=== PATIENT | male | born 1990 | race Caucasian/White ===

== ENCOUNTER 2022-04-06 19:14 | Inpatient (IN) | payer OTHER ==
[~2022-04-06] VITALS: Ht 172.7 cm; Wt 96.7 kg
[2022-04-06] MEDS ORDERED: ONDANSETRON ODT 4 MG TAB PO ONE (22:00)
[2022-04-06] MEDS ORDERED: OXYCODONE W/ ACETAMINOPHEN 5/325MG TABLET PO ONE (22:30)
[2022-04-06] MEDS ORDERED: HYDROmorphone HCL 2 MG/ML VL/or syr IV ONE (22:30)
[2022-04-06 23:04] LABS: Basophils # (auto) 0.1 10 ^3/uL (0-0.2); Eosinophils # (auto) 0 10 ^3/uL (0-0.8); Eosinophils % (auto) 0.1 % (0.0-7.0); Monocytes # (auto) 0.9 10 ^3/uL (0-1.3); Nucleated Red Blood Cells % 0.2 %
[2022-04-06 23:06] LABS: Basophils % (auto) 0.6 % (0.0-2.0); Hematocrit 55.2 % (41.0-53.0); Hemoglobin 18.4 g/dL (13.5-17.5); Lymphocytes # (auto) 1.5 10 ^3/uL (0.4-5.4); Lymphocytes % (auto) 10.8 % (10.0-50.0); Mean Corpuscular Hemoglobin 27.7 pg (28.0-32.0); Mean Corpuscular Hgb Conc. 33.3 g/dL (32.0-36.0); Mean Corpuscular Volume 83.2 fL (80.0-100.0); Neutrophils # (auto) 11.8 10 ^3/uL (1.6-8.6); Neutrophils % (auto) 82.5 % (37.0-80.0); Red Blood Cells 6.64 10^6/uL (4.5-5.90); Red Cell Distribution Width 13.8 % (11.8-14.3); White Blood Cell 14.3 10^3/uL (4.4-10.8)
[2022-04-06 23:26] LABS: Albumin 1.1 g/dL (3.4-5.0); Calcium 7.3 mg/dL (8.5-10.1); Potassium 5.5 mmol/L (3.5-5.1)
[2022-04-06 23:29] LABS: BUN/Creatinine Ratio 34.2; Bilirubin, Total 0.2 mg/dL (0.2-1.0); Total Protein 4.1 g/dL (6.4-8.2)
[2022-04-07] MEDS ORDERED: traMADol HCL 50 MG TAB PO PRN (00:15)
[2022-04-07] MEDS ORDERED: ACETAMINOPHEN 325 MG TAB PO PRN (00:15)
[2022-04-07] MEDS ORDERED: ONDANSETRON HCL 4 MG/2 ML VIAL IV ONE (01:15)
[2022-04-07] MEDS: traMADol HCL 50 MG TAB PO PRN ×2 (01:20→09:30)
[2022-04-07] MEDS ORDERED: HYDROmorphone HCL 2 MG/ML VL/or syr IV ONE (02:15)
[2022-04-07] MEDS ORDERED: FUROSEMIDE 20 MG/2 ML VIAL IV SCH (06:00)
[2022-04-07] MEDS ORDERED: SODIUM BICARBONATE 8.4 % INJ 50ML VIAL IV ONE (08:00)
[2022-04-07] MEDS ORDERED: DEXTROSE (50%) 50ML SYRG IV ONE (08:00)
[2022-04-07] MEDS ORDERED: ALBUMIN 25% 100 ML IV ONE (08:00)
[2022-04-07] MEDS ORDERED: InsuLIN REG 1unit/0.01ml Soln (100units/ml) IV ONE (08:00)
[2022-04-07 08:29] LABS: Basophils # (auto) 0 10 ^3/uL (0-0.2); Basophils % (auto) 0.5 % (0.0-2.0); Eosinophils # (auto) 0.2 10 ^3/uL (0-0.8); Eosinophils % (auto) 1.5 % (0.0-7.0); Hematocrit 54.2 % (41.0-53.0); Hemoglobin 18.3 g/dL (13.5-17.5); Lymphocytes # (auto) 2.1 10 ^3/uL (0.4-5.4); Lymphocytes % (auto) 19.7 % (10.0-50.0); Mean Corpuscular Hemoglobin 28.4 pg (28.0-32.0); Mean Corpuscular Hgb Conc. 33.8 g/dL (32.0-36.0); Mean Corpuscular Volume 83.9 fL (80.0-100.0); Monocytes # (auto) 1.2 10 ^3/uL (0-1.3); Monocytes % (auto) 11.2 % (0.0-12.0); Neutrophils % (auto) 67.1 % (37.0-80.0); Nucleated Red Blood Cells % 0.1 %; Red Blood Cells 6.46 10^6/uL (4.5-5.90); Red Cell Distribution Width 13.8 % (11.8-14.3); White Blood Cell 10.4 10^3/uL (4.4-10.8)
[2022-04-07 08:38] LABS: Calcium 7.2 mg/dL (8.5-10.1); Potassium 4.5 mmol/L (3.5-5.1)
[2022-04-07 08:41] LABS: BUN/Creatinine Ratio 32.2; Bilirubin, Total 0.2 mg/dL (0.2-1.0); Total Protein 4.3 g/dL (6.4-8.2)
[2022-04-07] MEDS: ONDANSETRON HCL 4 MG/2 ML VIAL IV PRN ×2 (09:19→19:42)
[2022-04-07] MEDS: FUROSEMIDE 20 MG/2 ML VIAL IV SCH ×2 (09:20→18:45)
[2022-04-07] MEDS: ACETAMINOPHEN 325 MG TAB PO PRN (09:29)
[2022-04-07] MEDS: ENOXAPARIN SOD 40 MG/0.4 ML SYRINGE SC SCH (10:00)
[2022-04-07] MEDS: methylPREDNISolone SOD SUCC 125 MG/2 ML VL IV SCH ×2 (10:49→21:10)
[2022-04-07] MEDS: HYDROcodone-ACET 10/325MG TAB PO PRN ×3 (12:56→21:45)
[2022-04-07 16:15] LABS: Urine Bacteria NONE SEEN /hpf (None Seen); Urine Blood TRACE /uL (Negative); Urine Specific Gravity 1.014 (1.001-1.035); Urine WBC 1 /hpf (0 - 3)
[2022-04-07 18:03] VITALS: BP 112/63
[2022-04-07] MEDS: GABAPENTIN 300 MG CAP PO SCH (21:11)
[2022-04-07 22:00] VITALS: BP 115/72
[2022-04-08] MEDS: HYDROcodone-ACET 10/325MG TAB PO PRN ×3 (01:58→10:07)
[2022-04-08 05:00] VITALS: BP 120/82
[2022-04-08 05:07] LABS: Basophils # (auto) 0 10 ^3/uL (0-0.2); Basophils % (auto) 0.1 % (0.0-2.0); Eosinophils # (auto) 0 10 ^3/uL (0-0.8); Hematocrit 49.1 % (41.0-53.0); Hemoglobin 16.1 g/dL (13.5-17.5); Lymphocytes # (auto) 0.8 10 ^3/uL (0.4-5.4); Lymphocytes % (auto) 7.3 % (10.0-50.0); Mean Corpuscular Hgb Conc. 32.8 g/dL (32.0-36.0); Mean Corpuscular Volume 85.5 fL (80.0-100.0); Monocytes # (auto) 0.3 10 ^3/uL (0-1.3); Monocytes % (auto) 2.7 % (0.0-12.0); Neutrophils # (auto) 9.5 10 ^3/uL (1.6-8.6); Neutrophils % (auto) 89.9 % (37.0-80.0); Nucleated Red Blood Cells % 0.1 %; Red Blood Cells 5.74 10^6/uL (4.5-5.90); Red Cell Distribution Width 13.6 % (11.8-14.3); White Blood Cell 10.5 10^3/uL (4.4-10.8)
[2022-04-08 05:28] LABS: BUN/Creatinine Ratio 35.6; Calcium 7.1 mg/dL (8.5-10.1); Potassium 4.3 mmol/L (3.5-5.1)
[2022-04-08] MEDS: FUROSEMIDE 20 MG/2 ML VIAL IV SCH ×2 (06:04→18:06)
[2022-04-08 08:00] VITALS: BP 123/84
[2022-04-08 08:15] VITALS: BP 123/84
[2022-04-08] MEDS: ENOXAPARIN SOD 40 MG/0.4 ML SYRINGE SC SCH (10:03)
[2022-04-08] MEDS: GABAPENTIN 300 MG CAP PO SCH ×2 (10:06→21:21)
[2022-04-08 12:00] VITALS: BP 117/76
[2022-04-08] MEDS: ONDANSETRON HCL 4 MG/2 ML VIAL IV PRN ×3 (12:15→23:37)
[2022-04-08] MEDS: methylPREDNISolone SOD SUCC 125 MG/2 ML VL IV SCH ×2 (12:15→21:21)
[2022-04-08] MEDS: MORPHINE SULFATE 4 MG/ML SYR/VIAL IV PRN ×3 (13:45→23:33)
[2022-04-08 16:00] VITALS: BP 118/84
[2022-04-08 22:00] VITALS: BP 126/89
[2022-04-09] MEDS: ONDANSETRON HCL 4 MG/2 ML VIAL IV PRN ×7 (03:52→21:36)
[2022-04-09] MEDS: MORPHINE SULFATE 4 MG/ML SYR/VIAL IV PRN ×6 (03:53→21:37)
[2022-04-09 04:22] LABS: Basophils # (auto) 0 10 ^3/uL (0-0.2); Basophils % (auto) 0.2 % (0.0-2.0); Eosinophils # (auto) 0 10 ^3/uL (0-0.8); Hematocrit 46.6 % (41.0-53.0); Hemoglobin 15.9 g/dL (13.5-17.5); Lymphocytes # (auto) 0.8 10 ^3/uL (0.4-5.4); Lymphocytes % (auto) 8.6 % (10.0-50.0); Mean Corpuscular Hemoglobin 28.6 pg (28.0-32.0); Mean Corpuscular Hgb Conc. 34.1 g/dL (32.0-36.0); Mean Corpuscular Volume 83.6 fL (80.0-100.0); Monocytes # (auto) 0.3 10 ^3/uL (0-1.3); Monocytes % (auto) 3.4 % (0.0-12.0); Neutrophils # (auto) 7.8 10 ^3/uL (1.6-8.6); Neutrophils % (auto) 87.8 % (37.0-80.0); Nucleated Red Blood Cells % 0.1 %; Red Blood Cells 5.57 10^6/uL (4.5-5.90); Red Cell Distribution Width 13.4 % (11.8-14.3); White Blood Cell 8.9 10^3/uL (4.4-10.8)
[2022-04-09 04:35] LABS: Calcium 7.2 mg/dL (8.5-10.1); Potassium 4.6 mmol/L (3.5-5.1)
[2022-04-09 04:37] LABS: BUN/Creatinine Ratio 32.2
[2022-04-09 04:40] LABS: Bilirubin, Total 0.1 mg/dL (0.2-1.0); Total Protein 3.3 g/dL (6.4-8.2)
[2022-04-09 05:00] VITALS: BP 120/71
[2022-04-09] MEDS: FUROSEMIDE 20 MG/2 ML VIAL IV SCH ×2 (06:09→17:23)
[2022-04-09 08:00] VITALS: BP 122/79
[2022-04-09 09:00] VITALS: BP 122/79
[2022-04-09] MEDS: ACETAMINOPHEN 325 MG TAB PO PRN (10:20)
[2022-04-09] MEDS: methylPREDNISolone SOD SUCC 125 MG/2 ML VL IV SCH ×2 (10:23→21:34)
[2022-04-09] MEDS: ENOXAPARIN SOD 40 MG/0.4 ML SYRINGE SC SCH (10:23)
[2022-04-09] MEDS: GABAPENTIN 300 MG CAP PO SCH ×2 (10:24→21:34)
[2022-04-09 12:39] VITALS: BP 135/97
[2022-04-09 17:00] VITALS: BP 133/85
[2022-04-09] MEDS ORDERED: FUROSEMIDE 100 MG/10ML VIAL IV ONE ×2 (17:45→18:30)
[2022-04-09] MEDS ORDERED: metOLazone 5 MG TAB PO ONE (17:45)
[2022-04-09] MEDS ORDERED: FUROSEMIDE 40 MG/4 ML VIAL IV ONE (18:30)
[2022-04-09 22:00] VITALS: BP 135/86
[2022-04-10] MEDS: ONDANSETRON HCL 4 MG/2 ML VIAL IV PRN ×4 (04:15→21:07)
[2022-04-10] MEDS: MORPHINE SULFATE 4 MG/ML SYR/VIAL IV PRN ×4 (04:17→20:54)
[2022-04-10 04:37] LABS: Calcium 7.2 mg/dL (8.5-10.1)
[2022-04-10 04:42] LABS: Bilirubin, Total 0.3 mg/dL (0.2-1.0); Total Protein 3.5 g/dL (6.4-8.2)
[2022-04-10 04:50] LABS: Potassium 4.2 mmol/L (3.5-5.1)
[2022-04-10 05:00] VITALS: BP 129/94
[2022-04-10 08:00] VITALS: BP 125/90
[2022-04-10] MEDS: methylPREDNISolone SOD SUCC 125 MG/2 ML VL IV SCH ×2 (09:21→21:06)
[2022-04-10] MEDS: ENOXAPARIN SOD 40 MG/0.4 ML SYRINGE SC SCH (09:22)
[2022-04-10] MEDS: GABAPENTIN 300 MG CAP PO SCH ×2 (09:22→21:06)
[2022-04-10 12:00] VITALS: BP 134/104
[2022-04-10] MEDS ORDERED: FUROSEMIDE 40 MG/4 ML VIAL IV ONE (12:30)
[2022-04-10 12:38] VITALS: BP 120/90
[2022-04-10] MEDS: FUROSEMIDE INJECTION 100 MG in D5W 5% 100 ML IV SCH (15:16)
[2022-04-10 16:00] VITALS: BP 124/77
[2022-04-10] MEDS: ALBUTEROL SULF 2.5 MG/0.5ML(0.5%) NEB SOLN NEB PRN (16:41)
[2022-04-10] MEDS ORDERED: FUROSEMIDE 40 MG/4 ML VIAL IV SCH (18:00)
[2022-04-10] MEDS: ENOXAPARIN SOD 100 MG/1 ML SYRINGE SC SCH (21:07)
[2022-04-10 21:44] VITALS: BP 135/90
[2022-04-11] MEDS: ALBUTEROL SULF 2.5 MG/0.5ML(0.5%) NEB SOLN NEB PRN ×3 (00:21→20:02)
[2022-04-11] MEDS: ONDANSETRON HCL 4 MG/2 ML VIAL IV PRN ×5 (01:07→20:14)
[2022-04-11] MEDS: FUROSEMIDE INJECTION 100 MG in D5W 5% 100 ML IV SCH ×3 (01:07→20:15)
[2022-04-11] MEDS: MORPHINE SULFATE 4 MG/ML SYR/VIAL IV PRN ×5 (01:07→21:44)
[2022-04-11 05:00] VITALS: BP 119/79
[2022-04-11 06:39] LABS: Albumin 1.1 g/dL (3.4-5.0); BUN/Creatinine Ratio 26.3; Calcium 7.2 mg/dL (8.5-10.1); Potassium 3.1 mmol/L (3.5-5.1)
[2022-04-11 06:41] LABS: Bilirubin, Total 0.1 mg/dL (0.2-1.0); Total Protein 3.6 g/dL (6.4-8.2)
[2022-04-11 08:00] VITALS: BP 119/70
[2022-04-11] MEDS: methylPREDNISolone SOD SUCC 125 MG/2 ML VL IV SCH ×2 (09:26→21:35)
[2022-04-11] MEDS: GABAPENTIN 300 MG CAP PO SCH ×2 (09:26→21:35)
[2022-04-11] MEDS: metOLazone 5 MG TAB PO SCH (09:27)
[2022-04-11] MEDS: ENOXAPARIN SOD 100 MG/1 ML SYRINGE SC SCH ×2 (09:27→21:35)
[2022-04-11 12:00] VITALS: BP 121/78
[2022-04-11] MEDS ORDERED: POTASSIUM CHL 20 Meq TABLET PO ONE (13:15)
[2022-04-11 16:00] VITALS: BP 121/73
[2022-04-11 22:00] VITALS: BP 100/79
[2022-04-12] MEDS: ONDANSETRON HCL 4 MG/2 ML VIAL IV PRN ×3 (03:18→15:20)
[2022-04-12] MEDS: MORPHINE SULFATE 4 MG/ML SYR/VIAL IV PRN ×4 (03:18→21:00)
[2022-04-12 05:00] VITALS: BP 111/68
[2022-04-12] MEDS: ALBUTEROL SULF 2.5 MG/0.5ML(0.5%) NEB SOLN NEB PRN ×2 (06:01→18:22)
[2022-04-12 06:03] LABS: Basophils # (auto) 0.1 10 ^3/uL (0-0.2); Basophils % (auto) 0.8 % (0.0-2.0); Eosinophils # (auto) 0 10 ^3/uL (0-0.8); Hemoglobin 15.1 g/dL (13.5-17.5); Lymphocytes # (auto) 1.1 10 ^3/uL (0.4-5.4); Lymphocytes % (auto) 7.6 % (10.0-50.0); Mean Corpuscular Hemoglobin 28.2 pg (28.0-32.0); Mean Corpuscular Hgb Conc. 33.6 g/dL (32.0-36.0); Mean Corpuscular Volume 83.8 fL (80.0-100.0); Monocytes # (auto) 0.8 10 ^3/uL (0-1.3); Monocytes % (auto) 5.5 % (0.0-12.0); Neutrophils # (auto) 12.2 10 ^3/uL (1.6-8.6); Neutrophils % (auto) 86.1 % (37.0-80.0); Red Blood Cells 5.37 10^6/uL (4.5-5.90); Red Cell Distribution Width 13.6 % (11.8-14.3); White Blood Cell 14.2 10^3/uL (4.4-10.8)
[2022-04-12] MEDS: FUROSEMIDE INJECTION 100 MG in D5W 5% 100 ML IV SCH ×2 (06:12→16:30)
[2022-04-12 06:23] LABS: Albumin 1.1 g/dL (3.4-5.0); BUN/Creatinine Ratio 28.1; Calcium 6.8 mg/dL (8.5-10.1)
[2022-04-12 06:25] LABS: Bilirubin, Total 0.1 mg/dL (0.2-1.0); Total Protein 4.1 g/dL (6.4-8.2)
[2022-04-12 06:48] LABS: Potassium 2.8 mmol/L (3.5-5.1)
[2022-04-12] MEDS ORDERED: FUROSEMIDE 40 MG TAB PO ONE (07:15)
[2022-04-12] MEDS ORDERED: POTASSIUM CHL 20 Meq TABLET PO ONE ×5 (07:15→10:00)
[2022-04-12 08:00] VITALS: BP 116/81
[2022-04-12] MEDS: LACTULOSE 20Gm/30ML SOLN PO SCH ×2 (09:33→21:45)
[2022-04-12] MEDS: metOLazone 5 MG TAB PO SCH (09:33)
[2022-04-12] MEDS: methylPREDNISolone SOD SUCC 125 MG/2 ML VL IV SCH ×2 (09:34→21:45)
[2022-04-12] MEDS: ENOXAPARIN SOD 100 MG/1 ML SYRINGE SC SCH ×2 (09:34→21:45)
[2022-04-12] MEDS: GABAPENTIN 300 MG CAP PO SCH ×2 (09:35→21:45)
[2022-04-12 12:00] VITALS: BP 127/87
[2022-04-12 16:00] VITALS: BP 122/70
[2022-04-12 21:00] VITALS: BP 117/72
[2022-04-12 22:00] VITALS: BP 117/72
[2022-04-12] MEDS ORDERED: FUROSEMIDE 20 MG TAB PO SCH (22:00)
[2022-04-12] MEDS ORDERED: POTASSIUM CHL 20 Meq TABLET PO SCH ×2 (22:00)
[2022-04-13] MEDS: MORPHINE SULFATE 4 MG/ML SYR/VIAL IV PRN ×4 (01:09→18:08)
[2022-04-13] MEDS: ONDANSETRON HCL 4 MG/2 ML VIAL IV PRN ×3 (01:12→18:09)
[2022-04-13] MEDS: FUROSEMIDE INJECTION 100 MG in D5W 5% 100 ML IV SCH (02:16)
[2022-04-13 05:00] VITALS: BP 113/71
[2022-04-13 05:47] LABS: Albumin 1.2 g/dL (3.4-5.0); BUN/Creatinine Ratio 26.9; Calcium 6.9 mg/dL (8.5-10.1); Potassium 3.6 mmol/L (3.5-5.1)
[2022-04-13 05:51] LABS: Bilirubin, Total 0.2 mg/dL (0.2-1.0); Total Protein 3.7 g/dL (6.4-8.2)
[2022-04-13 09:00] VITALS: BP 112/68
[2022-04-13] MEDS ORDERED: predniSONE 20 MG TAB PO SCH (10:00)
[2022-04-13] MEDS ORDERED: ALBUMIN 25% 100 ML IV SCH (10:00)
[2022-04-13] MEDS ORDERED: TACROLIMUS 1 MG CAP PO SCH (10:00)
[2022-04-13] MEDS: GABAPENTIN 300 MG CAP PO SCH (10:39)
[2022-04-13] MEDS: LACTULOSE 20Gm/30ML SOLN PO SCH (10:40)
[2022-04-13] MEDS: metOLazone 5 MG TAB PO SCH (10:40)
[2022-04-13] MEDS: ENOXAPARIN SOD 100 MG/1 ML SYRINGE SC SCH (10:41)
[2022-04-13 12:18] VITALS: BP 123/79
[2022-04-13 16:25] VITALS: BP 127/77
[2022-04-13] MEDS ORDERED: FUROSEMIDE 40 MG/4 ML VIAL IV SCH (18:00)
[2022-04-13 18:08] VITALS: BP 127/77
[2022-04-13] MEDS ORDERED: POTA-220 PO (18:47)
[2022-04-13] MEDS ORDERED: APIX5TAB PO (18:47)
[2022-04-13] MEDS ORDERED: PRED20TA2 PO (18:47)
[2022-04-13] MEDS ORDERED: METO5TAB5 PO (18:47)
[2022-04-13] MEDS ORDERED: FURO1TAB31 PO (18:47)
== END 2022-04-13 21:23 | DRG 729 ==
LOC: EEVIPCON 19:14 → ER 19:14 → OVERFLOW 04-07 00:16 → CENTRAL 04-07 17:50
PROVIDERS: ADMIT Internal Medicine; ATTEND Internal Medicine
DX: N43.3 Hydrocele, unspecified (principal); N17.0 Acute kidney failure with tubular necrosis; J90 Pleural effusion, not elsewhere classified; R18.8 Other ascites; D47.1 Chronic myeloproliferative disease; E44.0 Moderate protein-calorie malnutrition; I12.9 Hypertensive chronic kidney disease with stage 1 through stage 4 chronic kidney disease, or unspecified chronic kidney disease; N18.2 Chronic kidney disease, stage 2 (mild); E87.70 Fluid overload, unspecified; Z20.822 Contact with and (suspected) exposure to COVID-19; G89.4 Chronic pain syndrome; D75.1 Secondary polycythemia; E87.5 Hyperkalemia; E87.6 Hypokalemia; Z86.711 Personal history of pulmonary embolism; Z80.0 Family history of malignant neoplasm of digestive organs; Z82.49 Family history of ischemic heart disease and other diseases of the circulatory system; Z87.441 Personal history of nephrotic syndrome; Z88.6 Allergy status to analgesic agent
CPT/HCPCS: 36415; 71045; 71046; 74176; 76870; 80048; 80053; 81001; 82728; 82962; 83615; 83880; 84484; 85025; 86038; 86431; 87426; 94640; 96365; 96372; 96375; 96376; G0378; J1815; J2405; J7060; J7507; P9047; Q0162

== ENCOUNTER 2022-05-26 20:59 | Inpatient (IN) | payer OTHER ==
[~2022-05-26] VITALS: Ht 172.7 cm; Wt 85.9 kg
[~2022-05-26 20:59] MED LIST: APIX5TAB PO; FURO1TAB31 PO; METO5TAB5 PO; POTA-220 PO; PRED20TA2 PO
[2022-05-26 21:45] LABS: Basophils # (auto) 0 10 ^3/uL (0-0.2); Basophils % (auto) 0.4 % (0.0-2.0); Eosinophils # (auto) 0.1 10 ^3/uL (0-0.8); Hematocrit 44.5 % (41.0-53.0); Hemoglobin 15.2 g/dL (13.5-17.5); Lymphocytes # (auto) 0.9 10 ^3/uL (0.4-5.4); Lymphocytes % (auto) 10.1 % (10.0-50.0); Mean Corpuscular Hemoglobin 28.9 pg (28.0-32.0); Mean Corpuscular Hgb Conc. 34.2 g/dL (32.0-36.0); Mean Corpuscular Volume 84.5 fL (80.0-100.0); Monocytes % (auto) 11.6 % (0.0-12.0); Neutrophils # (auto) 6.8 10 ^3/uL (1.6-8.6); Neutrophils % (auto) 76.9 % (37.0-80.0); Nucleated Red Blood Cells % 0.1 %; Red Blood Cells 5.26 10^6/uL (4.5-5.90); Red Cell Distribution Width 14.9 % (11.8-14.3); White Blood Cell 8.9 10^3/uL (4.4-10.8)
[2022-05-26] MEDS ORDERED: MORPHINE SULFATE 4 MG/ML SYR/VIAL IV ONE (21:45)
[2022-05-26] MEDS ORDERED: FUROSEMIDE 100 MG/10ML VIAL IV ONE (21:45)
[2022-05-26 22:03] LABS: Calcium 7.2 mg/dL (8.5-10.1); Potassium 3.7 mmol/L (3.5-5.1)
[2022-05-26 22:06] LABS: BUN/Creatinine Ratio 31.3; Bilirubin, Total 0.2 mg/dL (0.2-1.0); Total Protein 3.8 g/dL (6.4-8.2)
[2022-05-26 22:16] LABS: Albumin 0.9 g/dL (3.4-5.0)
[2022-05-26] MEDS ORDERED: ALBUMIN 25% 50 ML IV ONE (22:45)
[2022-05-26] MEDS ORDERED: PANTOPRAZOLE 40 MG TAB PO ONE (23:45)
[2022-05-27 00:29] LABS: Urine Bacteria NONE SEEN /hpf (None Seen); Urine Blood Negative /uL (Negative); Urine Specific Gravity 1.009 (1.001-1.035); Urine WBC <1 /hpf (0 - 3)
[2022-05-27] MEDS: ONDANSETRON HCL 4 MG/2 ML VIAL IV PRN ×2 (00:32→09:48)
[2022-05-27] MEDS: HYDROmorphone HCL 2 MG/ML VL/or syr IV PRN ×4 (00:32→20:34)
[2022-05-27 06:48] LABS: Potassium 3.7 mmol/L (3.5-5.1)
[2022-05-27 06:55] LABS: Calcium 7.4 mg/dL (8.5-10.1)
[2022-05-27] MEDS: ENOXAPARIN SOD 40 MG/0.4 ML SYRINGE SC SCH (10:00)
[2022-05-27] MEDS: ALBUMIN 25% 100 ML IV SCH (10:00)
[2022-05-27] MEDS: FUROSEMIDE 40 MG/4 ML VIAL IV SCH (10:00)
[2022-05-27] MEDS: HYDROcodone-ACET 5/325MG TAB PO PRN ×2 (13:02→16:41)
[2022-05-28] MEDS: FUROSEMIDE 40 MG/4 ML VIAL IV SCH ×3 (00:06→22:30)
[2022-05-28] MEDS: ALBUMIN 25% 100 ML IV SCH ×4 (00:07→22:29)
[2022-05-28] MEDS: HYDROcodone-ACET 5/325MG TAB PO PRN ×5 (00:40→12:10)
[2022-05-28] MEDS: ONDANSETRON HCL 4 MG/2 ML VIAL IV PRN (01:03)
[2022-05-28 07:44] LABS: BUN/Creatinine Ratio 23.7; Calcium 7.5 mg/dL (8.5-10.1); Potassium 3.5 mmol/L (3.5-5.1)
[2022-05-28] MEDS: ENOXAPARIN SOD 40 MG/0.4 ML SYRINGE SC SCH (12:11)
[2022-05-28 13:00] VITALS: BP 123/89
[2022-05-28 13:12] VITALS: BP 123/89
[2022-05-28] MEDS: HYDROmorphone HCL 2 MG/ML VL/or syr IV PRN (13:34)
[2022-05-28 16:37] LABS: Basophils # (auto) 0.1 10 ^3/uL (0-0.2); Eosinophils # (auto) 0.2 10 ^3/uL (0-0.8); Eosinophils % (auto) 2.3 % (0.0-7.0); Hematocrit 39.7 % (41.0-53.0); Hemoglobin 13.2 g/dL (13.5-17.5); Lymphocytes # (auto) 1.5 10 ^3/uL (0.4-5.4); Lymphocytes % (auto) 19.4 % (10.0-50.0); Mean Corpuscular Hemoglobin 28.6 pg (28.0-32.0); Mean Corpuscular Hgb Conc. 33.4 g/dL (32.0-36.0); Mean Corpuscular Volume 85.6 fL (80.0-100.0); Neutrophils # (auto) 4.9 10 ^3/uL (1.6-8.6); Neutrophils % (auto) 64.3 % (37.0-80.0); Nucleated Red Blood Cells % 0.1 %; Red Blood Cells 4.63 10^6/uL (4.5-5.90); White Blood Cell 7.6 10^3/uL (4.4-10.8)
[2022-05-28 16:42] VITALS: BP 127/75
[2022-05-28 16:55] LABS: Albumin 1.4 g/dL (3.4-5.0); Calcium 7.5 mg/dL (8.5-10.1); Magnesium 1.6 mg/dL (1.6-2.6); Potassium 3.5 mmol/L (3.5-5.1)
[2022-05-28 16:59] LABS: BUN/Creatinine Ratio 19.6; Bilirubin, Total 0.3 mg/dL (0.2-1.0); Total Protein 3.3 g/dL (6.4-8.2)
[2022-05-28] MEDS: DOXYCYCLINE 100MG/250ML 250 ML IV SCH (17:16)
[2022-05-28 21:43] VITALS: BP 139/87
[2022-05-28] MEDS: methylPREDNISolone SOD SUCC 125 MG/2 ML VL IV SCH (22:30)
[2022-05-28] MEDS: TACROLIMUS 1 MG CAP PO SCH (22:31)
[2022-05-29] MEDS: HYDROmorphone HCL 2 MG/ML VL/or syr IV PRN ×4 (01:28→23:06)
[2022-05-29] MEDS: DOXYCYCLINE 100MG/250ML 250 ML IV SCH ×2 (03:15→14:33)
[2022-05-29] MEDS: ALBUMIN 25% 100 ML IV SCH ×2 (04:00→10:15)
[2022-05-29 05:00] VITALS: BP 138/95
[2022-05-29 06:28] LABS: Potassium 3.9 mmol/L (3.5-5.1)
[2022-05-29 08:05] VITALS: BP 126/86
[2022-05-29 08:35] VITALS: BP 126/86
[2022-05-29] MEDS: methylPREDNISolone SOD SUCC 125 MG/2 ML VL IV SCH ×2 (10:16→22:19)
[2022-05-29] MEDS: FUROSEMIDE 40 MG/4 ML VIAL IV SCH ×2 (10:16→22:18)
[2022-05-29] MEDS: LOSARTAN POTASSIUM 25 MG TAB PO SCH (10:16)
[2022-05-29] MEDS: metOLazone 5 MG TAB PO SCH (10:17)
[2022-05-29] MEDS: ENOXAPARIN SOD 40 MG/0.4 ML SYRINGE SC SCH (10:17)
[2022-05-29] MEDS: TACROLIMUS 1 MG CAP PO SCH ×2 (11:33→23:06)
[2022-05-29 13:00] VITALS: BP_SYST 159; BP_DIAS 69; BP_DIAS 96
[2022-05-29] MEDS ORDERED: hydrALAZINE HCL 25 MG TAB PO SCH (14:00)
[2022-05-29] MEDS ORDERED: OXYCODONE W/ ACETAMINOPHEN 5/325MG TABLET PO ONE (14:00)
[2022-05-29] MEDS ORDERED: ALBUMIN 25% 100 ML IV SCH (16:15)
[2022-05-29 16:48] VITALS: BP 136/98
[2022-05-29] MEDS: ONDANSETRON HCL 4 MG/2 ML VIAL IV PRN (18:28)
[2022-05-29 21:40] VITALS: BP 139/93
[2022-05-29] MEDS: POTASSIUM CHL 20 Meq TABLET PO SCH (22:19)
[2022-05-29] MEDS: hydrALAZINE HCL 25 MG TAB PO SCH (22:19)
[2022-05-30] MEDS: DOXYCYCLINE 100MG/250ML 250 ML IV SCH ×2 (03:19→15:14)
[2022-05-30] MEDS: HYDROmorphone HCL 2 MG/ML VL/or syr IV PRN ×4 (03:36→21:03)
[2022-05-30 05:00] VITALS: BP 133/89
[2022-05-30] MEDS: hydrALAZINE HCL 25 MG TAB PO SCH ×3 (05:55→23:15)
[2022-05-30 06:29] LABS: Albumin 1.9 g/dL (3.4-5.0); Calcium 8.1 mg/dL (8.5-10.1); Potassium 3.1 mmol/L (3.5-5.1)
[2022-05-30 06:32] LABS: BUN/Creatinine Ratio 26.3
[2022-05-30] MEDS: POTASSIUM CHL 20 Meq TABLET PO SCH ×2 (08:42→23:15)
[2022-05-30] MEDS: LOSARTAN POTASSIUM 25 MG TAB PO SCH (08:43)
[2022-05-30] MEDS: metOLazone 5 MG TAB PO SCH (08:43)
[2022-05-30] MEDS: TACROLIMUS 1 MG CAP PO SCH ×2 (08:43→23:35)
[2022-05-30] MEDS: FUROSEMIDE 40 MG/4 ML VIAL IV SCH ×2 (08:43→23:08)
[2022-05-30] MEDS: ENOXAPARIN SOD 40 MG/0.4 ML SYRINGE SC SCH (08:44)
[2022-05-30] MEDS: methylPREDNISolone SOD SUCC 125 MG/2 ML VL IV SCH ×2 (08:44→23:07)
[2022-05-30 09:03] VITALS: BP 120/84
[2022-05-30 09:04] LABS: Hepatitis B Surface Antibody Negative (Negative)
[2022-05-30 09:37] LABS: Hepatitis A Total Antibody Negative (Negative)
[2022-05-30] MEDS: ALBUMIN 25% 100 ML IV SCH ×2 (09:49→23:09)
[2022-05-30 12:30] VITALS: BP 131/91
[2022-05-30 15:00] LABS: Hepatitis C Antibody Negative (Negative)
[2022-05-30 16:46] VITALS: BP 138/92
[2022-05-30] MEDS ORDERED: POLYETHYLENE GLYCOL 17 GM PWDR PO ONE (17:45)
[2022-05-30] MEDS: OXYCODONE W/ ACETAMINOPHEN 5/325MG TABLET PO PRN (17:58)
[2022-05-30 20:00] VITALS: BP 130/82
[2022-05-30 22:21] VITALS: BP 130/82
[2022-05-30] MEDS ORDERED: HEPARIN DRIP/D5W 100UNITS/ML 250 ML IV SCH (22:45)
[2022-05-30] MEDS ORDERED: POTASSIUM CHL 20 Meq TABLET PO ONE (22:45)
[2022-05-30] MEDS ORDERED: HEPARIN SODIUM (PORCINE) 5000 UNITS/ML 1ML VIAL IV ONE (22:45)
[2022-05-30] MEDS: POLYETHYLENE GLYCOL 17 GM PWDR PO SCH (23:06)
[2022-05-30 23:55] LABS: Basophils # (auto) 0.4 10 ^3/uL (0-0.2); Basophils % (auto) 1.7 % (0.0-2.0); Eosinophils # (auto) 0 10 ^3/uL (0-0.8); Hematocrit 41.9 % (41.0-53.0); Hemoglobin 14.3 g/dL (13.5-17.5); Lymphocytes % (auto) 4.8 % (10.0-50.0); Mean Corpuscular Hgb Conc. 34.1 g/dL (32.0-36.0); Monocytes # (auto) 0.7 10 ^3/uL (0-1.3); Monocytes % (auto) 3.4 % (0.0-12.0); Neutrophils # (auto) 19.2 10 ^3/uL (1.6-8.6); Neutrophils % (auto) 90.1 % (37.0-80.0); Red Blood Cells 4.92 10^6/uL (4.5-5.90); Red Cell Distribution Width 14.9 % (11.8-14.3); White Blood Cell 21.3 10^3/uL (4.4-10.8)
[2022-05-31] MEDS ORDERED: HEPARIN DRIP/D5W 100UNITS/ML 250 ML IV SCH
[2022-05-31 00:05] LABS: INR 0.97 (0.9-1.15); Partial Thromboplastin Time 30.1 sec (24.6-33.4)
[2022-05-31] MEDS: OXYCODONE W/ ACETAMINOPHEN 5/325MG TABLET PO PRN ×3 (00:28→22:06)
[2022-05-31] MEDS ORDERED: HEPARIN SODIUM (PORCINE) 5000 UNITS/ML 1ML VIAL IV ONE ×2 (00:45)
[2022-05-31] MEDS: HYDROmorphone HCL 2 MG/ML VL/or syr IV PRN ×3 (02:32→13:07)
[2022-05-31] MEDS: DOXYCYCLINE 100MG/250ML 250 ML IV SCH ×2 (03:36→15:06)
[2022-05-31 04:55] VITALS: BP 128/76
[2022-05-31] MEDS: hydrALAZINE HCL 25 MG TAB PO SCH ×3 (07:12→21:51)
[2022-05-31] MEDS: POLYETHYLENE GLYCOL 17 GM PWDR PO SCH ×3 (07:13→21:50)
[2022-05-31 08:00] VITALS: BP 136/99
[2022-05-31] MEDS: metOLazone 5 MG TAB PO SCH (08:28)
[2022-05-31] MEDS: methylPREDNISolone SOD SUCC 125 MG/2 ML VL IV SCH (08:28)
[2022-05-31] MEDS: TACROLIMUS 1 MG CAP PO SCH ×2 (08:29→21:51)
[2022-05-31] MEDS: LOSARTAN POTASSIUM 25 MG TAB PO SCH (08:29)
[2022-05-31] MEDS: POTASSIUM CHL 20 Meq TABLET PO SCH ×2 (08:29→21:50)
[2022-05-31] MEDS: FUROSEMIDE 40 MG/4 ML VIAL IV SCH ×2 (08:31→21:50)
[2022-05-31 09:17] LABS: INR 1.01 (0.9-1.15)
[2022-05-31] MEDS: HEPARIN DRIP/D5W 100UNITS/ML 250 ML IV SCH ×2 (09:51→15:53)
[2022-05-31] MEDS: ALBUMIN 25% 100 ML IV SCH ×2 (11:57→21:48)
[2022-05-31 12:30] VITALS: BP 115/85
[2022-05-31 17:22] LABS: INR 1.02 (0.9-1.15)
[2022-05-31 17:23] VITALS: BP 138/96
[2022-05-31 22:00] VITALS: BP 117/76
[2022-05-31 22:51] LABS: INR 0.99 (0.9-1.15)
[2022-06-01] MEDS: DOXYCYCLINE 100MG/250ML 250 ML IV SCH ×2 (03:02→15:41)
[2022-06-01 05:00] VITALS: BP 130/78
[2022-06-01] MEDS: POLYETHYLENE GLYCOL 17 GM PWDR PO SCH ×3 (05:54→21:57)
[2022-06-01] MEDS: hydrALAZINE HCL 25 MG TAB PO SCH ×3 (06:00→21:59)
[2022-06-01 06:22] LABS: Basophils # (auto) 0 10 ^3/uL (0-0.2); Basophils % (auto) 0.3 % (0.0-2.0); Eosinophils # (auto) 0 10 ^3/uL (0-0.8); Hematocrit 39.4 % (41.0-53.0); Hemoglobin 13.2 g/dL (13.5-17.5); Lymphocytes # (auto) 1.1 10 ^3/uL (0.4-5.4); Lymphocytes % (auto) 7.3 % (10.0-50.0); Mean Corpuscular Hemoglobin 28.6 pg (28.0-32.0); Mean Corpuscular Hgb Conc. 33.6 g/dL (32.0-36.0); Mean Corpuscular Volume 85.3 fL (80.0-100.0); Monocytes # (auto) 1.1 10 ^3/uL (0-1.3); Monocytes % (auto) 7.5 % (0.0-12.0); Neutrophils # (auto) 12.3 10 ^3/uL (1.6-8.6); Neutrophils % (auto) 84.9 % (37.0-80.0); Nucleated Red Blood Cells % 0.1 %; Red Blood Cells 4.61 10^6/uL (4.5-5.90); Red Cell Distribution Width 14.7 % (11.8-14.3); White Blood Cell 14.5 10^3/uL (4.4-10.8)
[2022-06-01 06:40] LABS: INR 1.02 (0.9-1.15); Partial Thromboplastin Time 57.8 sec (24.6-33.4)
[2022-06-01 06:45] LABS: Potassium 3.4 mmol/L (3.5-5.1)
[2022-06-01 06:51] LABS: Albumin 2.4 g/dL (3.4-5.0); BUN/Creatinine Ratio 34.5; Bilirubin, Total 0.3 mg/dL (0.2-1.0); Calcium 7.9 mg/dL (8.5-10.1); Magnesium 1.4 mg/dL (1.6-2.6); Total Protein 4.3 g/dL (6.4-8.2)
[2022-06-01 08:25] VITALS: BP 138/98
[2022-06-01] MEDS: ALBUMIN 25% 100 ML IV SCH ×2 (09:35→21:58)
[2022-06-01] MEDS: metOLazone 5 MG TAB PO SCH (09:36)
[2022-06-01] MEDS: POTASSIUM CHL 20 Meq TABLET PO SCH ×2 (09:36→21:57)
[2022-06-01] MEDS: LOSARTAN POTASSIUM 25 MG TAB PO SCH (09:36)
[2022-06-01] MEDS: predniSONE 20 MG TAB PO SCH (09:37)
[2022-06-01] MEDS: FUROSEMIDE 40 MG/4 ML VIAL IV SCH ×2 (09:38→21:59)
[2022-06-01] MEDS: TACROLIMUS 1 MG CAP PO SCH ×2 (09:39→21:56)
[2022-06-01] MEDS: HEPARIN DRIP/D5W 100UNITS/ML 250 ML IV SCH (09:52)
[2022-06-01] MEDS ORDERED: POTASSIUM CHL 20 Meq TABLET PO ONE (11:30)
[2022-06-01 11:56] LABS: INR 0.97 (0.9-1.15); Partial Thromboplastin Time 54.1 sec (24.6-33.4)
[2022-06-01 12:20] VITALS: BP 126/60
[2022-06-01 12:41] LABS: Protein, Urine 116.2 mg/dL (0.0-11.9)
[2022-06-01] MEDS: MAGNESIUM SULFATE 1GM/100ML 100 ML IV SCH ×4 (12:42→19:37)
[2022-06-01] MEDS: OXYCODONE W/ ACETAMINOPHEN 5/325MG TABLET PO PRN ×2 (12:54→20:50)
[2022-06-01 16:20] VITALS: BP 118/77
[2022-06-01] MEDS ORDERED: MAGNESIUM SULFATE 1GM/100ML 200 ML IV ONE (18:18)
[2022-06-01 20:51] VITALS: BP 120/60
[2022-06-01 22:00] VITALS: BP 119/74
[2022-06-02] MEDS: HEPARIN DRIP/D5W 100UNITS/ML 250 ML IV SCH (01:23)
[2022-06-02] MEDS: DOXYCYCLINE 100MG/250ML 250 ML IV SCH ×2 (03:15→14:54)
[2022-06-02] MEDS: OXYCODONE W/ ACETAMINOPHEN 5/325MG TABLET PO PRN ×2 (05:00→14:00)
[2022-06-02 05:06] VITALS: BP 116/73
[2022-06-02] MEDS: hydrALAZINE HCL 25 MG TAB PO SCH ×3 (05:12→22:00)
[2022-06-02] MEDS: POLYETHYLENE GLYCOL 17 GM PWDR PO SCH ×3 (05:13→22:00)
[2022-06-02 06:30] LABS: Basophils # (auto) 0 10 ^3/uL (0-0.2); Basophils % (auto) 0.2 % (0.0-2.0); Eosinophils # (auto) 0 10 ^3/uL (0-0.8); Eosinophils % (auto) 0.4 % (0.0-7.0); Hematocrit 41.1 % (41.0-53.0); Hemoglobin 14.3 g/dL (13.5-17.5); Lymphocytes # (auto) 1.6 10 ^3/uL (0.4-5.4); Lymphocytes % (auto) 18.4 % (10.0-50.0); Mean Corpuscular Hemoglobin 29.7 pg (28.0-32.0); Mean Corpuscular Hgb Conc. 34.7 g/dL (32.0-36.0); Mean Corpuscular Volume 85.5 fL (80.0-100.0); Monocytes # (auto) 1.1 10 ^3/uL (0-1.3); Monocytes % (auto) 12.2 % (0.0-12.0); Neutrophils # (auto) 6.1 10 ^3/uL (1.6-8.6); Neutrophils % (auto) 68.8 % (37.0-80.0); Red Blood Cells 4.81 10^6/uL (4.5-5.90); White Blood Cell 8.9 10^3/uL (4.4-10.8)
[2022-06-02 06:42] LABS: INR 0.94 (0.9-1.15); Partial Thromboplastin Time 51.4 sec (24.6-33.4)
[2022-06-02 06:49] LABS: Potassium 3.8 mmol/L (3.5-5.1)
[2022-06-02 06:57] LABS: Albumin 2.7 g/dL (3.4-5.0); BUN/Creatinine Ratio 35.3; Bilirubin, Total 0.4 mg/dL (0.2-1.0); Calcium 8.3 mg/dL (8.5-10.1); Magnesium 2.2 mg/dL (1.6-2.6); Total Protein 4.5 g/dL (6.4-8.2)
[2022-06-02 08:00] VITALS: BP 123/77
[2022-06-02] MEDS: FUROSEMIDE 40 MG/4 ML VIAL IV SCH ×2 (10:11→22:00)
[2022-06-02] MEDS: ALBUMIN 25% 100 ML IV SCH ×2 (10:11→22:00)
[2022-06-02] MEDS: POTASSIUM CHL 20 Meq TABLET PO SCH ×2 (10:12→22:33)
[2022-06-02] MEDS: metOLazone 5 MG TAB PO SCH (10:12)
[2022-06-02] MEDS: predniSONE 20 MG TAB PO SCH (10:12)
[2022-06-02] MEDS: LOSARTAN POTASSIUM 25 MG TAB PO SCH (10:13)
[2022-06-02] MEDS: TACROLIMUS 1 MG CAP PO SCH ×2 (10:23→22:33)
[2022-06-02 12:00] VITALS: BP 117/76
[2022-06-02] MEDS: ONDANSETRON HCL 4 MG/2 ML VIAL IV PRN (14:54)
[2022-06-02 16:00] VITALS: BP 130/86
[2022-06-02] MEDS ORDERED: HYDROcodone-ACET 5/325MG TAB PO PRN (19:45)
[2022-06-02] MEDS ORDERED: APIXABAN 5 MG TAB PO SCH (22:00)
[2022-06-02 22:35] VITALS: BP 110/85
[2022-06-02 22:47] VITALS: BP 110/85
[2022-06-03] MEDS: DOXYCYCLINE 100MG/250ML 250 ML IV SCH (02:04)
== END 2022-06-03 02:00 | DRG 699 ==
LOC: EEVIPCON 20:59 → EDUNIT# 20:59 → EDBD 20:59 → ER 20:59 → OVERFLOW 23:41 → CENTRAL 05-28 12:56
PROVIDERS: ADMIT Specialist; ATTEND Internal Medicine
PROC: 05HC33Z Insertion of Infusion Device into Left Basilic Vein, Percutaneous Approach (ICD-10-PCS; principal; 2022-05-27)
PROC: B54NZZA Ultrasonography of Left Upper Extremity Veins, Guidance (ICD-10-PCS; 2022-05-27)
DX: N04.9 Nephrotic syndrome with unspecified morphologic changes (principal); I82.622 Acute embolism and thrombosis of deep veins of left upper extremity; E88.09 Other disorders of plasma-protein metabolism, not elsewhere classified; Z20.822 Contact with and (suspected) exposure to COVID-19; Z79.899 Other long term (current) drug therapy; Z88.8 Allergy status to other drugs, medicaments and biological substances; R60.1 Generalized edema
CPT/HCPCS: 36415; 71045; 71101; 80048; 80053; 81001; 82040; 82570; 82784; 82962; 83520; 83735; 83883; 84155; 84156; 84165; 85025; 85610; 85730; 86160; 86162; 86256; 86334; 86703; 86704; 86706; 86708; 86803; 87081; 87340; 87426; 93005; 93971; 96365; 96375; G0378; J2405; J3490; J7507; P9047

== ENCOUNTER 2022-12-16 21:00 | Inpatient (IN) | payer OTHER ==
[~2022-12-16] VITALS: Ht 172.7 cm; Wt 80.0 kg
[2022-12-16] MEDS ORDERED: DICYCLOMINE HCL (10MG/ML) 2 ML AMPULE IM ONE (22:00)
[2022-12-16] MEDS ORDERED: ONDANSETRON HCL 4 MG/2 ML VIAL IM ONE (22:00)
[2022-12-16 22:10] LABS: Albumin 4.2 g/dL (3.4-5.0); Calcium 9.2 mg/dL (8.5-10.1)
[2022-12-16 22:14] LABS: Bilirubin, Total 1.3 mg/dL (0.2-1.0)
[2022-12-16 22:21] LABS: Hematocrit 46.8 % (41.0-53.0); Mean Corpuscular Hemoglobin 27.8 pg (28.0-32.0); Mean Corpuscular Hgb Conc. 36.4 g/dL (32.0-36.0); Mean Corpuscular Volume 76.3 fL (80.0-100.0); Red Blood Cells 6.13 10^6/uL (4.5-5.90); Red Cell Distribution Width 13.2 % (11.8-14.3); White Blood Cell 5.9 10^3/uL (4.4-10.8)
[2022-12-16 22:24] LABS: Band Neutrophils % (manual) 0; Basophils % (manual) 0 (0.0-2.0); Blast Cells 0; Eosinophils % (manual) 0 (0-7); Metamyelocytes % 0; Myelocytes % 0; Promyelocytes % 0; Reactive Lymphocytes 0
[2022-12-16 22:43] LABS: BUN/Creatinine Ratio 19.3 (10.0-20.0); Lymphocytes % (manual) 29 (10.0-50.0)
[2022-12-16 22:44] LABS: Monocytes % (manual) 26 (0-12)
[2022-12-16 22:49] LABS: Potassium 2.4 mmol/L (3.5-5.1)
[2022-12-16] MEDS ORDERED: SODIUM CHLORIDE 0.9% 2,000 ML IV ONE (23:30)
[2022-12-16] MEDS ORDERED: POTASSIUM EFFERVESENT TAB 25 MEQ PO ONE (23:30)
[2022-12-17] MEDS ORDERED: NITROGLYCERIN 0.4 MG SL TAB SL PRN ×2 (01:30→15:15)
[2022-12-17] MEDS ORDERED: SODIUM CHLORIDE 0.9% 1,000 ML IV SCH (01:30)
[2022-12-17] MEDS ORDERED: HYDROcodone-ACET 5/325MG TAB PO PRN (01:30)
[2022-12-17 02:15] VITALS: PULSE 72; RESP 13; O2SAT 98
[2022-12-17] MEDS: POTASSIUM CHL 20MEQ/100ML 100 ML IV SCH ×2 (03:30→06:56)
[2022-12-17] MEDS: ONDANSETRON HCL 4 MG/2 ML VIAL IV PRN ×3 (03:31→14:19)
[2022-12-17 04:48] LABS: Urine Bacteria FEW /hpf (None Seen); Urine Blood Negative /uL (Negative); Urine Specific Gravity 1.007 (1.001-1.035); Urine WBC 1 /hpf (0 - 3)
[2022-12-17 04:55] LABS: Alcohol, Urine < 3.0 mg/dL (0-10); Amphetamine Screen, Urine NEGATIVE (NEGATIVE); Barbiturate Scree,Urine NEGATIVE (NEGATIVE); Benzodiazephine Screen, Urine NEGATIVE (NEGATIVE); Cannabinoid Screen, Urine NEGATIVE (NEGATIVE); Cocaine Screen, Urine NEGATIVE (NEGATIVE); Opiate Scree,Urine NEGATIVE (NEGATIVE); Phencyclidine Screen, Urine NEGATIVE (NEGATIVE)
[2022-12-17 06:26] LABS: Hematocrit 46.3 % (41.0-53.0)
[2022-12-17 06:29] LABS: Hemoglobin 16.9 g/dL (13.5-17.5); Red Blood Cells 6.01 10^6/uL (4.5-5.90); White Blood Cell 5.5 10^3/uL (4.4-10.8)
[2022-12-17 06:43] LABS: Albumin 4.2 g/dL (3.4-5.0); Calcium 9.1 mg/dL (8.5-10.1)
[2022-12-17 06:45] LABS: BUN/Creatinine Ratio 22.1 (10.0-20.0)
[2022-12-17 07:14] LABS: Bilirubin, Total 1.4 mg/dL (0.2-1.0); Total Protein 7.3 g/dL (6.4-8.2)
[2022-12-17 07:31] LABS: Potassium 2.3 mmol/L (3.5-5.1)
[2022-12-17 07:38] VITALS: PULSE 75; RESP 14; O2SAT 98
[2022-12-17 08:57] LABS: Basophils % (manual) 0 (0.0-2.0); Blast Cells 0; Metamyelocytes % 0; Myelocytes % 0; Promyelocytes % 0; Reactive Lymphocytes 0
[2022-12-17 09:40] VITALS: PULSE 70; RESP 15; O2SAT 95
[2022-12-17] MEDS: FAMOTIDINE (10MG/ML) 2ML VL IV SCH ×2 (11:11→22:15)
[2022-12-17 13:34] LABS: Band Neutrophils % (manual) 1; Eosinophils % (manual) 3 (0-7); Lymphocytes % (manual) 27 (10.0-50.0); Monocytes % (manual) 20 (0-12)
[2022-12-17] MEDS ORDERED: SODIUM CHLORIDE 0.9% 2,000 ML IV ONE (13:45)
[2022-12-17] MEDS ORDERED: POTASSIUM CHL 20MEQ/100ML 100 ML IV ONE (13:45)
[2022-12-17] MEDS ORDERED: MORPHINE SULFATE INJ 2 MG/ml SYRG IV PRN ×2 (13:45→15:15)
[2022-12-17 14:26] LABS: Amylase 77 U/L (25-115); Lipase 145 U/L (73-393)
[2022-12-17 15:46] LABS: BUN/Creatinine Ratio 18.1 (10.0-20.0)
[2022-12-17 15:55] LABS: Potassium 2.5 mmol/L (3.5-5.1)
[2022-12-17] MEDS: D5W/LACTATED RINGERS 1,000 ML IV SCH ×2 (16:28→23:45)
[2022-12-17 19:03] VITALS: RESP 18; TEMP 36.6; O2SAT 97
[2022-12-17 20:00] VITALS: PULSE 60; PULSE 62; RESP 18; TEMP 36.6
[2022-12-17] MEDS: MORPHINE SULFATE INJ 2 MG/ml SYRG IV PRN (20:28)
[2022-12-17 22:00] VITALS: BP 114/68; PULSE 73; RESP 15; TEMP 97.7; O2SAT 96
[2022-12-17] MEDS: PANTOPRAZOLE 40 MG/10 ML VIAL INJ IV SCH (22:16)
[2022-12-18] VITALS (7 sets, daily range): BP systolic 103–115; BP diastolic 65–78; PULSE 62–80; RESP 16–18; TEMP 36.6; O2SAT 95–99
[2022-12-18] MEDS: MORPHINE SULFATE INJ 2 MG/ml SYRG IV PRN ×4 (05:18→22:44)
[2022-12-18 05:49] LABS: Hematocrit 42.7 % (41.0-53.0); Hemoglobin 15.2 g/dL (13.5-17.5); Mean Corpuscular Hemoglobin 28.4 pg (28.0-32.0); Mean Corpuscular Hgb Conc. 35.6 g/dL (32.0-36.0); Mean Corpuscular Volume 79.6 fL (80.0-100.0); Red Blood Cells 5.36 10^6/uL (4.5-5.90); Red Cell Distribution Width 13.3 % (11.8-14.3); White Blood Cell 4.9 10^3/uL (4.4-10.8)
[2022-12-18 05:51] LABS: Potassium 3.4 mmol/L (3.5-5.1)
[2022-12-18 06:00] LABS: Albumin 3.4 g/dL (3.4-5.0); BUN/Creatinine Ratio 13.4 (10.0-20.0); Bilirubin, Total 0.6 mg/dL (0.2-1.0); Calcium 8.8 mg/dL (8.5-10.1); Total Protein 5.8 g/dL (6.4-8.2)
[2022-12-18 06:02] LABS: Basophils % (manual) 0 (0.0-2.0); Blast Cells 0; Metamyelocytes % 0; Myelocytes % 0; Promyelocytes % 0; Reactive Lymphocytes 0
[2022-12-18 07:34] LABS: Band Neutrophils % (manual) 0; Eosinophils % (manual) 2 (0-7); Lymphocytes % (manual) 25 (10.0-50.0); Monocytes % (manual) 12 (0-12)
[2022-12-18] MEDS: FAMOTIDINE (10MG/ML) 2ML VL IV SCH ×2 (09:39→22:44)
[2022-12-18] MEDS: PANTOPRAZOLE 40 MG/10 ML VIAL INJ IV SCH ×2 (09:39→21:03)
[2022-12-18] MEDS: D5W/LACTATED RINGERS 1,000 ML IV SCH ×2 (09:39→19:45)
[2022-12-18] MEDS: POLYETHYLENE GLYCOL 17 GM PWDR PO PRN (21:04)
[2022-12-18] MEDS: LACTULOSE 20Gm/30ML SOLN PO SCH (22:40)
[2022-12-18] MEDS: ONDANSETRON HCL 4 MG/2 ML VIAL IV PRN (22:40)
[2022-12-19] VITALS (7 sets, daily range): BP systolic 114–130; BP diastolic 78–91; PULSE 56–83; RESP 17–19; TEMP 97.8–98.3; O2SAT 95–99
[2022-12-19] MEDS: D5W/LACTATED RINGERS 1,000 ML IV SCH ×2 (02:09→15:45)
[2022-12-19] MEDS: ONDANSETRON HCL 4 MG/2 ML VIAL IV PRN ×2 (05:38→18:02)
[2022-12-19] MEDS: MORPHINE SULFATE INJ 2 MG/ml SYRG IV PRN ×2 (05:40→12:31)
[2022-12-19 06:11] LABS: Hematocrit 41.7 % (41.0-53.0); Hemoglobin 14.6 g/dL (13.5-17.5); Mean Corpuscular Hemoglobin 28.4 pg (28.0-32.0); Red Blood Cells 5.15 10^6/uL (4.5-5.90); Red Cell Distribution Width 12.9 % (11.8-14.3); White Blood Cell 3.9 10^3/uL (4.4-10.8)
[2022-12-19 06:13] LABS: Blast Cells 0; Metamyelocytes % 0; Myelocytes % 0; Promyelocytes % 0; Reactive Lymphocytes 0
[2022-12-19 06:37] LABS: Calcium 8.6 mg/dL (8.5-10.1)
[2022-12-19 06:43] LABS: Albumin 3.2 g/dL (3.4-5.0); BUN/Creatinine Ratio 9.6 (10.0-20.0); Bilirubin, Total 0.5 mg/dL (0.2-1.0)
[2022-12-19 07:43] LABS: Band Neutrophils % (manual) 1; Basophils % (manual) 1 (0.0-2.0); Eosinophils % (manual) 7 (0-7); Lymphocytes % (manual) 38 (10.0-50.0); Monocytes % (manual) 14 (0-12)
[2022-12-19] MEDS: LACTULOSE 20Gm/30ML SOLN PO SCH ×3 (09:34→21:45)
[2022-12-19] MEDS: FAMOTIDINE (10MG/ML) 2ML VL IV SCH ×2 (09:34→21:46)
[2022-12-19] MEDS: PANTOPRAZOLE 40 MG/10 ML VIAL INJ IV SCH ×2 (09:34→21:45)
[2022-12-19] MEDS: POLYETHYLENE GLYCOL 17 GM PWDR PO PRN (11:52)
[2022-12-19] MEDS ORDERED: POTASSIUM CHL 20 Meq TABLET PO ONE (18:45)
[2022-12-20] VITALS (7 sets, daily range): BP systolic 107–126; BP diastolic 74–88; PULSE 51–68; RESP 16–21; TEMP 97.9–98.7; O2SAT 92–100
[2022-12-20] MEDS: D5W/LACTATED RINGERS 1,000 ML IV SCH ×3 (01:45→20:45)
[2022-12-20] MEDS: ONDANSETRON HCL 4 MG/2 ML VIAL IV PRN ×3 (05:41→19:31)
[2022-12-20] MEDS: LACTULOSE 20Gm/30ML SOLN PO SCH ×4 (05:41→21:32)
[2022-12-20 06:26] LABS: Basophils # (auto) 0.1 10 ^3/uL (0-0.2); Calcium 8.5 mg/dL (8.5-10.1); Eosinophils # (auto) 0.5 10 ^3/uL (0-0.8); Hematocrit 42.7 % (41.0-53.0); Hemoglobin 14.7 g/dL (13.5-17.5); Lymphocytes # (auto) 1.6 10 ^3/uL (0.4-5.4); Lymphocytes % (auto) 30.9 % (10.0-50.0); Mean Corpuscular Hgb Conc. 34.5 g/dL (32.0-36.0); Mean Corpuscular Volume 81.1 fL (80.0-100.0); Monocytes # (auto) 0.9 10 ^3/uL (0-1.3); Monocytes % (auto) 16.8 % (0.0-12.0); Neutrophils # (auto) 2.1 10 ^3/uL (1.6-8.6); Neutrophils % (auto) 41.3 % (37.0-80.0); Nucleated Red Blood Cells % 0.1 %; Potassium 3.7 mmol/L (3.5-5.1); Red Blood Cells 5.27 10^6/uL (4.5-5.90); Red Cell Distribution Width 12.9 % (11.8-14.3); White Blood Cell 5.1 10^3/uL (4.4-10.8)
[2022-12-20] MEDS: POLYETHYLENE GLYCOL 17 GM PWDR PO PRN (11:47)
[2022-12-20] MEDS: FAMOTIDINE (10MG/ML) 2ML VL IV SCH ×2 (13:03→21:32)
[2022-12-20] MEDS: PANTOPRAZOLE 40 MG/10 ML VIAL INJ IV SCH ×2 (13:03→21:32)
[2022-12-20] MEDS: DOCUSATE SOD 100 MG CAP PO PRN (21:32)
[2022-12-21] MEDS: ONDANSETRON HCL 4 MG/2 ML VIAL IV PRN ×4 (00:12→23:52)
[2022-12-21] MEDS: ACETAMINOPHEN 325 MG TAB PO PRN (00:19)
[2022-12-21 05:00] VITALS: BP 115/71; PULSE 50; RESP 18; TEMP 98.2; O2SAT 96
[2022-12-21] MEDS: LACTULOSE 20Gm/30ML SOLN PO SCH ×4 (06:08→21:21)
[2022-12-21] MEDS: FAMOTIDINE (10MG/ML) 2ML VL IV SCH (08:48)
[2022-12-21] MEDS: PANTOPRAZOLE 40 MG/10 ML VIAL INJ IV SCH (08:49)
[2022-12-21] MEDS: DOCUSATE SOD 100 MG CAP PO PRN (08:51)
[2022-12-21] MEDS: POLYETHYLENE GLYCOL 17 GM PWDR PO PRN (08:51)
[2022-12-21] MEDS: D5W/LACTATED RINGERS 1,000 ML IV SCH (08:52)
[2022-12-21 09:00] VITALS: BP 109/82; PULSE 53; RESP 19; TEMP 97.9; O2SAT 100
[2022-12-21 13:00] VITALS: BP 120/78; PULSE 61; RESP 18; TEMP 97.6; O2SAT 97
[2022-12-21 17:00] VITALS: BP 123/82; PULSE 63; RESP 18; TEMP 97.6; O2SAT 97
[2022-12-21 20:00] VITALS: RESP 15
[2022-12-21] MEDS: PANTOPRAZOLE 40 MG TAB PO SCH (21:21)
[2022-12-21 22:00] VITALS: BP 135/98; PULSE 71; RESP 18; TEMP 98.3; O2SAT 95
[2022-12-22] VITALS (7 sets, daily range): BP systolic 108–142; BP diastolic 59–103; PULSE 52–65; RESP 17–18; TEMP 97.6–98.4; O2SAT 94–99
[2022-12-22] MEDS: ACETAMINOPHEN 325 MG TAB PO PRN (00:40)
[2022-12-22] MEDS: LACTULOSE 20Gm/30ML SOLN PO SCH ×4 (05:56→22:01)
[2022-12-22] MEDS: DOCUSATE SOD 100 MG CAP PO PRN (05:56)
[2022-12-22 07:01] LABS: Potassium 3.5 mmol/L (3.5-5.1)
[2022-12-22 07:09] LABS: Albumin 3.2 g/dL (3.4-5.0); BUN/Creatinine Ratio 10.6 (10.0-20.0); Bilirubin, Total 0.4 mg/dL (0.2-1.0); Calcium 8.4 mg/dL (8.5-10.1); Total Protein 5.8 g/dL (6.4-8.2)
[2022-12-22] MEDS: PANTOPRAZOLE 40 MG TAB PO SCH ×2 (10:00→22:01)
[2022-12-22] MEDS: ONDANSETRON HCL 4 MG/2 ML VIAL IV PRN ×3 (10:40→22:01)
[2022-12-22] MEDS: POLYETHYLENE GLYCOL 17 GM PWDR PO PRN (12:07)
[2022-12-23 05:03] VITALS: BP 109/71; PULSE 59; RESP 18; TEMP 97.5; O2SAT 97
[2022-12-23] MEDS: LACTULOSE 20Gm/30ML SOLN PO SCH (06:29)
[2022-12-23] MEDS: ONDANSETRON HCL 4 MG/2 ML VIAL IV PRN (06:31)
[2022-12-23 07:03] LABS: BUN/Creatinine Ratio 12.5 (10.0-20.0); Calcium 8.9 mg/dL (8.5-10.1)
[2022-12-23 08:00] VITALS: BP 117/81; PULSE 72; RESP 16; TEMP 97.4; O2SAT 98
[2022-12-23 09:00] VITALS: BP 117/81; PULSE 72; RESP 16; TEMP 97.4; O2SAT 98
[2022-12-23] MEDS: POLYETHYLENE GLYCOL 17 GM PWDR PO PRN (09:39)
[2022-12-23] MEDS: DOCUSATE SOD 100 MG CAP PO PRN (09:39)
[2022-12-23] MEDS: PANTOPRAZOLE 40 MG TAB PO SCH (09:39)
== END 2022-12-23 11:06 | DRG 392 ==
LOC: EEVIPCON 21:00 → ER 21:00 → TELE 12-17 01:35 → TELE-WESTW 12-17 18:18 → WEST WING 12-21 03:31
PROVIDERS: ADMIT Specialist; ATTEND Internal Medicine
DX: K59.00 Constipation, unspecified (principal); E87.1 Hypo-osmolality and hyponatremia; N18.4 Chronic kidney disease, stage 4 (severe); E87.6 Hypokalemia; E87.8 Other disorders of electrolyte and fluid balance, not elsewhere classified; Z82.49 Family history of ischemic heart disease and other diseases of the circulatory system; Z88.6 Allergy status to analgesic agent
CPT/HCPCS: 36415; 71045; 74018; 74176; 76705; 80048; 80053; 80307; 81001; 82150; 83690; 84443; 84484; 85007; 85025; 85027; 96361; 96374; C9113; G0378; J2405; J3480; J3490